=== PATIENT | male | born 1955 | race Caucasian/White ===

== ENCOUNTER → 2019-04-25 | Outpatient (CLI) | payer MEDICARE ==
--- NOTE | 2019-04-25 10:43 | Diagnostic Imaging Report ---
PROCEDURE: CT head without contrast. TECHNIQUE: Multiple contiguous axial images were obtained through the brain without the use of intravenous contrast. Auto Exposure Controls were utilized during the CT exam to meet ALARA standards for radiation dose reduction. INDICATION: New, daily persistent headache. COMPARISON: None FINDINGS: There is no midline shift or mass effect. The ventricles and sulci are unremarkable. No evidence for acute intracranial hemorrhage, abnormal extra-axial fluid collections or cerebral edema is present. The basilar cisterns are unremarkable. The bony calvarium is intact. The visualized paranasal sinuses and mastoid air cells are clear. IMPRESSION: Negative appearing noncontrast CT of the head. Dictated by: Dictated on workstation # [id number]
== END ==
LOC: RAD FS 09:30
PROVIDERS: ATTEND Family Medicine
DX: G44.52 New daily persistent headache (NDPH) (principal)
CPT/HCPCS: 70450

== ENCOUNTER 2019-12-25 18:46 | Outpatient (CLI) | payer MEDICARE | END 2019-12-26 04:57 | disposition home or self-care (01) | LOC: SLEEP 18:46 | PROVIDERS: ATTEND Psychiatry & Neurology Neurology | DX: G47.33 Obstructive sleep apnea (adult) (pediatric) (principal); G47.10 Hypersomnia, unspecified; M79.605 Pain in left leg; M79.604 Pain in right leg; Z96.653 Presence of artificial knee joint, bilateral | CPT/HCPCS: 95811 ==

== ENCOUNTER → 2021-02-13 | Outpatient (CLI) | payer MEDICARE ==
--- NOTE | 2021-02-13 15:19 | Diagnostic Imaging Report ---
INDICATION: Pain im left middle finger with no known injury. FINDINGS: The alignment is normal. There is no fracture or dislocation. There are degenerative changes in the DIP joint of the 3rd finger. Some soft tissue swelling. IMPRESSION: Soft tissue swelling. Some degenerative changes in the DIP joint, however, no acute fracture or dislocation. Dictated by: Dictated on workstation # [id number]
== END ==
LOC: RAD FS 13:05
PROVIDERS: ATTEND Nurse Practitioner
DX: M19.042 Primary osteoarthritis, left hand (principal)
CPT/HCPCS: 73140

== ENCOUNTER → 2021-09-05 | Outpatient (CLI) | payer MEDICARE ==
--- NOTE | 2021-09-05 09:46 | Diagnostic Imaging Report ---
INDICATION: Bilateral knee pain. Previous bilateral knee replacements COMPARISON: None. FINDINGS: Multiple radiographic views of the bilateral knees were obtained. Expected postoperative changes are seen from previous bilateral total knee replacements. Femoral and tibial components appear well-seated bilaterally. There is no evidence of periprosthetic fracture on either side. No unexpected radiopaque foreign bodies are identified. IMPRESSION: Expected postsurgical changes from prior bilateral total knee replacements. No evidence of periprosthetic fracture or loosening. Dictated by: Dictated on workstation # [id number]
== END ==
LOC: RAD FS 09:16
PROVIDERS: ATTEND Nurse Practitioner
DX: M25.561 Pain in right knee (principal); M25.562 Pain in left knee; Z96.653 Presence of artificial knee joint, bilateral

== ENCOUNTER → 2022-07-22 | Outpatient (CLI) | payer MEDICARE ==
--- NOTE | 2022-07-22 10:20 | Diagnostic Imaging Report ---
CLINICAL INDICATION: Patient has bilateral arm numbness. No known neck injury. EXAM: MRI of the cervical spine performed without IV contrast. Sequences included sagittal T2, sagittal T1, sagittal T2 fat-sat, and axial T2. COMPARISON: None. FINDINGS: There is no acute cervical spine fracture or dislocation. There is no significant Modic degenerative signal. Limited visualization of the posterior fossa shows no significant abnormality. The cervical spinal cord has normal cord caliber with no abnormal signal. There is no significant paraspinal soft tissue abnormality. There are small anterior spurs involving the mid to lower cervical spine. C1-C2: Unremarkable. C2-C3: Unremarkable. C3-C4: There is a subtle posterior disk bulge. There is no significant central canal or neuroforaminal narrowing. C4-C5: There is a subtle posterior disk bulge. There is moderate left facet arthropathy and mild right facet arthropathy. There is at least moderate left neuroforaminal narrowing and mild right neuroforaminal narrowing. There is mild central canal stenosis. C5-C6: There is diffuse disk bulge with moderate loss of disk space height. There is ligamentum flavum buckling. There is mild to moderate bilateral facet arthropathy. There are bilateral uncinate spurs. There is severe left neuroforaminal narrowing and at least moderate right neuroforaminal narrowing. There is moderate to severe central canal stenosis. C6-C7: There is mild bilateral facet arthropathy and ligamentum flavum buckling. There is no significant disk bulge. There is mild to moderate central canal narrowing. There is no significant neuroforaminal narrowing. C7-T1: Unremarkable. IMPRESSION: 1: There is no acute cervical spine fracture or dislocation. 2: There is cervical spine degenerative disease, most pronounced at the C5-C6 level. Dictated by: Dictated on workstation # [id number]
== END ==
LOC: RAD 08:00
PROVIDERS: ATTEND Family Medicine
DX: M47.22 Other spondylosis with radiculopathy, cervical region (principal)
CPT/HCPCS: 72141